=== PATIENT | male | born 1960 | race Caucasian/White ===

== ENCOUNTER 2017-03-01 06:40 | Inpatient (IN) | payer OTHER ==
[~2017-03-01] VITALS: Ht 189.9 cm; Wt 94.5 kg
[~2017-03-01 06:40] MED LIST: AMBI5TAB PO; HYDR1SOL6 PO; IBUP-232 PO; VOLT1GEL16 TOPICAL
[2017-03-01] MEDS ORDERED: HYDR-3288 PO (07:05)
[2017-03-01] MEDS ORDERED: ENOX40P SQ (07:05)
[2017-03-01] MEDS ORDERED: ASPI81CH6 CHEW (07:06)
[2017-03-01] MEDS ORDERED: SODIUM CHLORID 0.9% 500 ML IV PRN (07:15)
[2017-03-01] MEDS ORDERED: diphenhydrAMINE HCL 50 MG/ML VIAL IV PUSH PRN (07:15)
[2017-03-01] MEDS ORDERED: ZOLPIDEM TARTRATE 5 MG TAB PO PRN (07:15)
[2017-03-01] MEDS ORDERED: CHLORHEXIDINE GLUCONATE 2 % 1 PACK (2 CLOTHS) TOPICAL PRN (07:15)
[2017-03-01] MEDS ORDERED: CHLORHEXIDINE GLUCONATE 4% SOLN 120 ML BTL TOPICAL SCH (07:15)
[2017-03-01] MEDS ORDERED: ACETAMINOPHEN/HYDROcodone 325 MG/7.5 MG TAB PO PRN (07:15)
[2017-03-01] MEDS ORDERED: ONDANSETRON HCL 4 MG/2 ML VIAL IVP PRN (07:15)
[2017-03-01] MEDS ORDERED: MORPHINE SULFATE 4 MG/ML INJ IV PUSH PRN (07:15)
[2017-03-01] MEDS ORDERED: SODIUM CHLORIDE 0.9% FLUSH 5 ML FLUSH IVF PRN (07:15)
[2017-03-01] MEDS ORDERED: POVIDONE IODINE 7.5% SCRUB 118 ML BOTTLE TOPICAL SCH (07:15)
[2017-03-01] MEDS ORDERED: METOPROLOL TARTRATE 25 MG TAB PO PRN (07:15)
[2017-03-01] MEDS ORDERED: LACTATED RINGER'S 1000 ML IV PRN (07:15)
[2017-03-01] MEDS ORDERED: POVIDONE IODINE 5% (ANTISEPSIS KIT) 4 APPLICATIONS EACH NARE PRN (07:15)
[2017-03-01] MEDS ORDERED: BISACODYL 10 MG SUPP RECTAL PRN (07:15)
[2017-03-01] MEDS: DEXAMETHASONE SOD PHOS 20 MG/5 ML VIAL IV SCH (07:26)
[2017-03-01] MEDS ORDERED: GENTAMICIN SULFATE 80 MG/2 ML VIAL ONE (08:57)
[2017-03-01] MEDS ORDERED: ROPIVACAINE PERI-ARTICULAR INJECTION. P-ARTICULR SCH ×5 (10:00)
[2017-03-01] MEDS ORDERED: SODIUM CHLORIDE 0.9% IV SCH (10:00)
[2017-03-01] MEDS ORDERED: TRANEXAMIC PERI-ARTICULAR 3,000 MG/NS 100 ML P-ARTICULR SCH ×2 (10:00)
[2017-03-01] MEDS ORDERED: TRANEXAMIC ACID IV SCH (10:00)
[2017-03-01] MEDS ORDERED: METOCLOPRAMIDE HCL 10 MG/2 ML VIAL ONE (10:01)
[2017-03-01] MEDS ORDERED: ACETAMINOPHEN 1000 MG/100 ML 100 ML IV ONE (10:01)
[2017-03-01] MEDS: VANCOMYCIN 1000 MG/NS 250 ML (for <70 kg) IV SCH ×4 (10:21→10:28)
[2017-03-01] MEDS: ceFAZolin 2 GM PREMIX 50 ML IV SCH ×2 (10:21→10:28)
[2017-03-01] MEDS ORDERED: NEOSTIGMINE 3 MG/3 ML SYR IV ONE (12:00)
[2017-03-01] MEDS ORDERED: MIDAZOLAM HCL 2 MG/2 ML VIAL IV ONE (12:00)
[2017-03-01] MEDS ORDERED: LACTATED RINGER'S 1000 ML INJ 1,000 ML IV ONE (12:00)
[2017-03-01] MEDS ORDERED: GLYCOPYRROLATE 1 MG/5 ML SYRINGE IV PUSH ONE (12:00)
[2017-03-01] MEDS ORDERED: ROCURONIUM INJ 50 MG/5 ML SYRINGE IV PUSH ONE (12:00)
[2017-03-01] MEDS ORDERED: PROPOFOL 200 MG/20 ML AMP IV ONE (12:00)
[2017-03-01] MEDS ORDERED: ONDANSETRON HCL 4 MG/2 ML VIAL IV PUSH ONE (12:00)
[2017-03-01] MEDS ORDERED: LIDOCAINE HCL 1% PF 5 ML AMPULE OTHER ONE (12:00)
[2017-03-01] MEDS ORDERED: *MEPERIDINE 25 MG INJ VIAL PERIprocedural Use ONLY ONE (12:57)
[2017-03-01] MEDS ORDERED: Post-op Orders (for Pharmacy) MISC XX ONE (13:00)
[2017-03-01] MEDS ORDERED: *morphine SULFATE 8 MG/ML PERIprocedure ONLY ONE ×3 (13:11→13:51)
[2017-03-01] MEDS: SODIUM CHLOR 0.9% 1000 ML INJ 1,000 ML IV SCH ×3 (13:13→23:11)
--- NOTE | 2017-03-01 13:15 | MP ---
cc: MANAN WELCH DATE OF SURGERY: 03/01/2017 PREOPERATIVE DIAGNOSIS Left knee osteoarthritis. POSTOPERATIVE DIAGNOSIS Left knee osteoarthritis. PROCEDURE Left total knee arthroplasty with removal of deep hardware. SURGEON Dr. Manan Welch. EDUCATION AND DEVELOPMENT MANAGER Manan Fournier PA-C. ANESTHESIA General with an adductor canal femoral nerve block. ESTIMATED BLOOD LOSS 400 cc. TOURNIQUET TIME 44 minutes at 250 mmHg. COMPLICATIONS None. IMPLANTS USED DePuy Attune, size 9 posterior stabilized femoral component, size 9 rotating platform tibia baseplate, size 5 mm tibial insert, size 38 patella. JUSTIFICATION The patient is a 56-year-old male with a history of severe osteoarthritis involving the left knee. He had prior conservative treatment as well as prior opening with medial proximal tibial osteotomy. He has had severe progression of symptoms and failure of extensive conservative treatment to include medication therapy, injections, ambulatory assisted aids, home exercise program and activity modification. The patient is not overweight. X-rays of the patient's left knee revealed severe end-stage osteoarthritis with joint space narrowing, subchondral sclerosis, subchondral cysts, osteophyte formation and associated deformity. The patient was counseled as to the risks, benefits and alternatives to a total knee arthroplasty. The risks were discussed which include but are not limited to anesthesia, bleeding, infection, damage to nerves and blood vessels, pain, stiffness, failure of components, fracture, blood clot, pulmonary embolism and even . The patient's pain was severe. He favored the benefits over the risks. He did wish to proceed with surgery. PROCEDURE IN DETAIL A written consent was obtained. The patient was identified by name, taken to the operating room and placed supine on the operating table. An adductor canal femoral nerve block was performed followed by administration of general anesthesia. The patient was administered two grams of IV Ancef and one gram of IV vancomycin. A well-padded tourniquet was placed on the left thigh. The left lower extremity was prepped and draped using isopropyl alcohol, Hibiclens solution and ChloraPrep solution. After a timeout was performed an Esmarch bandage was used to exsanguinate the left lower extremity and tourniquet inflated to 250 mmHg. A longitudinal incision was made over the anterior aspect of the left knee. Dissection was carried down medially over the tibia to allow exposure of the tibial osteotomy hardware. A screwdriver was used to remove the four screws as well as the distal plate. At this point a medial parapatellar arthrotomy was performed. The patella was everted. A patella resection guide was used to resect 9 mm of patella. A size 38 mm guide was placed, three drill holes were placed, and a 38 mm trial fit well. Attention was turned to the femur where an intramedullary guide bernard was placed. A distal femoral guide was set to remove 10 mm of distal femur, 5 degrees off the anatomic valgus axis alignment. An oscillating saw was used to perform the distal femoral cut. Attention was turned to the tibia where an extramedullary tibial guide was set to resect 5 mm off the lowest portion of the medial tibial plateau. A tibia guide was pinned in place and a tibia cut was performed. A 5 mm spacer block showed full extension. Attention was turned back to the femur where AP sizing block measured a size 9. An anterior reference 3-degree external rotation guide was used to pin a size [address] Anterior, posterior and chamfer cuts were performed. A size 9 PCL box guide was pinned in place and the PCL was box cut with an oscillating saw. The medial and lateral meniscus remnants were removed as well as bone and soft tissue debris from the posterior portion of the knee. A size 9 tibia baseplate was pinned in place and the tibia was drilled and punched. The trial components were evaluated and final components cemented in place. With the current components the leg could achieve full extension to 0 degrees and flexion to 140. No evidence of tibial lift-off. Varus-valgus balance appeared appropriate and symmetric and the patella was noted to track centrally. With the tourniquet deflated the Bovie cautery was used for hemostasis. The surgical wound was thoroughly irrigated with sterile saline pulse lavage antibiotic-impregnated solution. The arthrotomy incision was closed with #1 Vicryl suture, the subcutaneous layer with 2-0 Vicryl suture. The skin incision was closed with Dermabond. Sterile dressing was applied. The patient tolerated the procedure well with no intraoperative complications noted. Manan Fournier, physician special ed assistant certified, was present during the entire procedure to include patient positioning and the procedure itself. The medical necessity of the physician special ed assistant was indicated in this case due to the complexity of the procedure. He assisted with manipulation of the leg and also retraction of muscle, tendon, bone and neurovascular structures. He assisted with preparation of bone and implantation of the prosthetic replacement. MD ROBERT Argueta/MIKE /12:28 PM /12:53 PM
[2017-03-01] MEDS ORDERED: DO NOT ADM ANY ANTICOAGULANT DRUGS PRN (13:45)
[2017-03-01] MEDS ORDERED: *HYDROmorphone PF 1 MG VIAL PERIprocedural Use ONLY ONE ×2 (13:59→14:10)
--- NOTE | 2017-03-01 14:02 | PD.CONS ---
HPI Service [facility] Hospitalists Consult Requested By Dr. Rodriguez Reason for Consult Medical management Primary Care Physician Walter Damon MD (Paul) Diagnoses: (1) Primary localized osteoarthrosis, lower leg History of Present Illness Written by Breanne Loredo, acting as scribe for Dr. Medellin on 03/01/17 at 13: 50. Mr. Ludwig is a 56-year-old male patient with a known medical history of severe osteoarthritis of the left knee who underwent a left total knee arthroplasty with removal of deep hardware by Dr. Rodriguez today. Hospitalist team has been consulted for medical management. At the time of assessment patient was examined postoperatively, awake and alert. Denies any other significant medical history. Does state he has underwent multiple conservative therapies including medication therapy, injection therapy, home PT and activity modification without any relief of his pain symptoms related to his osteoarthritis. Has been following with Dr. Rodriguez in the outpatient setting and has now elected to undergo today's surgery. Patient denies any recent fever, chills, cough, shortness of breath, abdominal pain, n/v/d or dysuria. Denies taking any medications. Review of Systems Constitutional: DENIES: Fever, Chills Eyes: DENIES: Blurred vision Respiratory: DENIES: Cough, Shortness of breath Cardiovascular: DENIES: Palpitations Gastrointestinal: DENIES: Abdominal pain, Black stools, Constipation, Diarrhea , Nausea, Vomiting Genitourinary: DENIES: Dysuria Musculoskeletal: COMPLAINS OF: Joint pain (left knee) Except as stated in HPI: all other systems reviewed are Neg Past Family Social History Allergies: Coded Allergies: No Known Allergies (Unverified , 02/26/17) Past Medical History Osteoarthritis Past Surgical History Right knee surgery x 6 Left knee surgery x 2 Cervical fusion x 2 Umbilical hernia repair Bowel obstruction surgery Reported Medications Reported Meds & Active Scripts Active Aspirin Low Dose (Aspirin) 81 Mg Chew 81 Mg CHEW BID 30 Days Lovenox Inj (Enoxaparin Sodium) 40 Mg/0.4 Ml Syr 40 Mg SQ DAILY Phoenix (Hydrocodone-Acetaminophen) 7.5-325 mg Tab 1-2 Tab PO Q6H PRN Reported Voltaren (Diclofenac Sodium) 1 % Gel..gram. 1 Applic TOPICAL DAILY Ambien (Zolpidem Tartrate) 5 Mg Tab 5 Mg PO HS PRN Hydrocodon-Acetamin 7.5-325/15 (Hydrocodone/Acetaminophen) 7.5 Mg-325 Mg/15 Ml ( 15 Ml) Solution 5 Caplet PO 3XWEEK Ibuprofen 600 Mg Tab 600 Mg PO TID Active Ordered Medications Current Medications Medications (Trade) Dose Ordered Sig/Ruy Route Start Time Stop Time Status Last Admin Sodium Chloride 1,000 ml @ 100 mls/hr Q10H IV 03/01/17 07:03 03/01/17 13:13 (NS Flush) 2 ml UNSCH PRN IVF 03/01/17 07:15 (NS Flush) 2 ml BID IVF 03/01/17 09:00 Cefazolin Sodium 1000 mg/Sodium Chloride 100 ml @ 200 mls/hr Q6H IV 03/01/17 17:00 03/02/17 05:29 (Lovenox Inj) 40 mg Q24H SQ 03/01/17 07:15 03/10/17 07:16 UNV (Morphine Inj) 3 mg Q3H PRN IV PUSH 03/01/17 07:15 (Phoenix 7.5-325 Mg) 1 tab Q4H PRN PO 03/01/17 07:15 (Phoenix 7.5-325 Mg) 2 tab Q4H PRN PO 03/01/17 07:15 (Theragran M Tab) 1 tab BID PO 03/02/17 21:00 05/01/17 20:59 (Zofran Inj) 4 mg Q6H PRN IVP 03/01/17 07:15 (Colace) 100 mg BID PO 03/02/17 21:00 (Ambien) 5 mg HS PRN PO 03/01/17 07:15 (Dulcolax Supp) 10 mg DAILY PRN RECTAL 03/01/17 07:15 (Benadryl Inj) 25 mg Q6H PRN IV PUSH 03/01/17 07:15 (Betadine 7.5% Scrub) 1 applic ONCE TOPICAL 03/01/17 07:15 03/04/17 07:14 (Hibiclens 4% Top Soln) 1 applic ONCE TOPICAL 03/01/17 07:15 03/04/17 07:14 Cefazolin Sodium/ Dextrose 50 ml @ 100 mls/hr LAST PUTTER AWAY IV 03/01/17 07:15 03/04/17 07:14 03/01/17 10:21 Vancomycin HCl 1000 mg/Sodium Chloride 250 ml @ 250 mls/hr LAST PUTTER AWAY IV 03/01/17 07:15 03/04/17 07:14 03/01/17 10:21 Tranexamic Acid 1419 mg/Sodium Chloride 114.19 ml @ 200 mls/ hr ONCE IV 03/01/17 10:00 03/01/17 16:00 03/01/17 10:35 Ropivacaine 24.63 ml/Ketorolac Tromethamine 30 mg/Epinephrine HCl 0.5 mg/ Clonidine 80 mcg/ Sodium Chloride 100 ml @ 200 mls/hr ONCE P-ARTICULR 03/01/17 10:00 03/01/17 16:00 03/01/17 11:09 Tranexamic Acid 3000 mg/Sodium Chloride 130 ml @ 260 mls/hr ONCE P-ARTICULR 03/01/17 10:00 03/01/17 16:00 03/01/17 11:09 (Decadron Inj) 10 mg LAST PUTTER AWAY IV 03/01/17 07:15 03/01/17 23:59 03/01/17 07:26 Lactated Ringer's 1,000 ml @ 30 mls/hr Q24H PRN IV 03/01/17 07:15 03/04/17 07:14 03/01/17 07:20 Sodium Chloride 500 ml @ 30 mls/hr [id number] PRN IV 03/01/17 07:15 03/04/17 07:14 (Lopressor) 25 mg LAST PUTTER AWAY PRN PO 03/01/17 07:15 03/04/17 07:14 (Betadine 5% Antisepsis Kit) 1 applic LAST PUTTER AWAY PRN EACH NARE 03/01/17 07:15 03/04/17 07:14 03/01/17 07:20 (Chlorhexidine 2% Cloth) 3 pack LAST PUTTER AWAY PRN TOPICAL 03/01/17 07:15 03/04/17 07:14 03/01/17 06:30 Miscellaneous Information ALL NURSING DEPARTME... UNSCH PRN .XX 03/01/17 13:45 03/02/17 13:44 Family History Father has a history of prostate cancer and dyslipidemia. Mother is . Social History Denies any current tobacco use. Admits to a social alcoholic drink 3-4 x per week. Denies any illicit drug use. Physical Exam Vital Signs Vital Signs Date Time Temp Pulse Resp B/P (MAP) Pulse Ox O2 Delivery O2 Flow Rate FiO2 03/01/17 13:30 84 15 127/72 (90) 99 Nasal Cannula 2 03/01/17 13:15 87 18 133/73 (93) 100 Nasal Cannula 2 03/01/17 13:00 97 15 153/91 (111) 98 Nasal Cannula 2 03/01/17 12:49 97.6 118 16 136/84 (101) 98 Nasal Cannula 2 03/01/17 07:17 97.6 65 16 142/83 (102) 98 Physical Exam GENERAL: This is a well-nourished, well-developed male patient, ashley in bed in no apparent distress. SKIN: No rashes, ecchymoses or lesions. Warm and dry. Left lower extremity dressing intact, clean and dry. HEENT: Atraumatic. Normocephalic. Pupils equal round and reactive. Extraocular motions intact. No scleral icterus. No injection or drainage. Nose without bleeding. Airway patent. NECK: Trachea midline. No JVD or lymphadenopathy. Supple, nontender, no meningeal signs. CARDIOVASCULAR: Regular rate and rhythm without murmurs, gallops, or rubs. RESPIRATORY: Clear to auscultation. Breath sounds equal bilaterally. No wheezes , rales, or rhonchi. GASTROINTESTINAL: Abdomen soft, non-tender, nondistended. No guarding. MUSCULOSKELETAL: Extremities without clubbing, cyanosis, or edema. No joint tenderness, effusion, or edema noted. NEUROLOGICAL: Awake and alert. Cranial nerves II through XII intact. Motor and sensory grossly within normal limits. Five out of 5 muscle strength in all muscle groups. Normal speech. Assessment and Plan Assessment and Plan Mr. Ludwig is a 56-year-old male patient with a known medical history of severe osteoarthritis of the left knee who underwent a left total knee arthroplasty with removal of deep hardware by Dr. Rodriguez today. Hospitalist team has been consulted for medical management. Left knee osteoarthritis: Status post left total knee arthroplasty with removal of deep hardware by Dr. Rodriguez, POD 0. - Control pain, Morphine IV available PRN per pain scale. Phoenix PO available PRN per pain scale. - Monitor for nausea, Zofran available PRN. - Monitor for constipation, Colace 100 mg PO BID scheduled. - Dressing changes per ortho recommendations - Ensure hydration, NS @ 100 ml/hr. Encourage PO intake. - PT/OT evaluation and treat appreciated. - Monitor H&H in am. Stable at this time. Monitor for any bleeding. - Monitor for fever, currently afebrile. - Encouraged use of IS. DVT prophylaxis: SCDs/Lovenox. Thank you for this consult, will follow with you. Discussed Condition With This note was transcribed by scribe [Breanne Loredo]. I, Dr. Regan Medellin personally performed the history, physical exam, and medical decision making; and confirmed the accuracy of the information in the transcribed note. Authenticated by Dr. Regan Medellin on 03/01/17 at 16:01. Breanne Loredo Mar 01, 2017 14:02 Regan Medellin MD Mar 01, 2017 16:01
--- NOTE | 2017-03-01 14:02 | RADRPT ---
EXAM DATE/TIME: 03/01/2017 13:31 [place] COMPARISON: No previous studies available for comparison. INDICATIONS : Post op total left knee. MEDICAL HISTORY : None. SURGICAL HISTORY : None. ENCOUNTER: Initial ACUITY: 1 day PAIN SCORE: 8/10 LOCATION: Left Knee FINDINGS: AP and lateral views of the knee following arthroplasty reveals a prosthesis in anatomic alignment. F racture is not appreciated. CONCLUSION: Status post total knee arthroplasty. Al Garcia MD FACR Al Garcia MD FACR on March 01, 2017 at 14:01 Board Certified Radiologist. This report was verified electronically.
[2017-03-01 16:00] VITALS: BP 127/88; PULSE 101; RESP 18; TEMP 96.8; O2SAT 95
[2017-03-01] MEDS ORDERED: HYDROmorphone HCL PF 1 MG/ML VIAL IV PUSH PRN (16:00)
[2017-03-01] MEDS ORDERED: NALOXONE HCL 0.4 MG/ML AMP IV PUSH PRN (16:00)
[2017-03-01 17:09] VITALS: O2SAT 94
[2017-03-01 20:00] VITALS: BP 117/71; PULSE 84; RESP 18; TEMP 98; O2SAT 97
[2017-03-01] MEDS: ACETAMINOPHEN/HYDROcodone 325 MG/7.5 MG TAB PO PRN (21:12)
[2017-03-01] MEDS: SODIUM CHLORIDE 0.9% FLUSH 5 ML FLUSH IVF SCH (23:09)
[2017-03-02] VITALS: BP 133/72; PULSE 87; RESP 18; TEMP 96.9; O2SAT 100
[2017-03-02 04:00] VITALS: BP 108/65; PULSE 93; RESP 18; TEMP 96.6; O2SAT 99
[2017-03-02] MEDS: ACETAMINOPHEN/HYDROcodone 325 MG/7.5 MG TAB PO PRN ×5 (04:33→22:49)
[2017-03-02 08:00] VITALS: BP_SYST 106; BP_SYST 148; BP_DIAS 60; BP_DIAS 69; PULSE 59; PULSE 76; RESP 16; TEMP 96.3; TEMP 96.6; O2SAT 97; O2SAT 99
--- NOTE | 2017-03-02 08:10 | PD.ORT.PN ---
Subjective Post Op Day #: 1 Subjective Remarks pain tolerable. Objective Vitals Vital Signs Date Time Temp Pulse Resp B/P (MAP) Pulse Ox O2 Delivery O2 Flow Rate FiO2 03/02/17 07:38 Room Air 03/02/17 04:00 96.6 93 18 108/65 (79) 99 03/02/17 00:00 96.9 87 18 133/72 (92) 100 03/01/17 20:00 98.0 84 18 117/71 (86) 97 03/01/17 17:09 94 Nasal Cannula 2.00 03/01/17 16:00 96.8 101 18 127/88 (101) 95 03/01/17 14:30 92 15 129/63 (85) 98 Nasal Cannula 2 03/01/17 14:15 87 15 110/70 (83) 93 Nasal Cannula 2 03/01/17 14:00 79 15 129/66 (87) 95 Nasal Cannula 2 03/01/17 13:45 95 15 132/76 (94) 98 Nasal Cannula 2 03/01/17 13:30 84 15 127/72 (90) 99 Nasal Cannula 2 03/01/17 13:15 87 18 133/73 (93) 100 Nasal Cannula 2 03/01/17 13:00 97 15 153/91 (111) 98 Nasal Cannula 2 03/01/17 12:49 97.6 118 16 136/84 (101) 98 Nasal Cannula 2 I/O 03/01/17 03/01/17 03/01/17 03/02/17 03/02/17 03/02/17 07:00 15:00 23:00 07:00 15:00 23:00 Intake Total 1550 ml 1255 ml 1310 ml Output Total 600 ml 450 ml 1000 ml Balance 950 ml 805 ml 310 ml Intake Oral 50 ml 240 ml 480 ml IV Total 1500 ml 1015 ml 830 ml Output Urine Total 400 ml 450 ml 1000 ml Estimated Blood Loss 200 ml # Bowel Movements 0 0 Objective Remarks in bed, nad incision no erythema, no drainage neg homans nvi Assessment & Plan Ortho Post Op Day #: 1 Problem List: Assessment and Plan s/p removal of hardware L knee, L TKA wbat daily dressing changes lovenox d/c planning home with hhc and pt - likely Wednesday rx in chart f/up dr. garcia 2 weeks Darnell Fournier PA Mar 02, 2017 08:10
--- NOTE | 2017-03-02 08:11 | HHI.DCPOC ---
Discharge Care Plan Diagnosis: (1) Primary localized osteoarthrosis, lower leg Your Health Problems Are: Difficulty with ADL Goals to Promote Your Health * To prevent worsening of your condition and complications * To maintain your health at the optimal level Directions to Meet Your Goals Take your medications as prescribed Follow your dietary instruction Follow activity as directed Keep your appointments as scheduled Take your immunizations and boosters as scheduled If your symptoms worsen call your PCP, if no PCP go to Urgent Care Center or Emergency Room Smoking is Dangerous to Your Health. Avoid second hand smoke Call the 24-hour hour crisis hotline for domestic abuse at Darnell Fournier Mar 02, 2017 08:11
--- NOTE | 2017-03-02 08:12 | HHI.FF ---
Face to Face Verification Diagnosis: (1) Primary localized osteoarthrosis, lower leg Physical Therapy Gait training, Safety evaluation, Transfer training, bed to chair Knee: Total knee, Protocol: Left, Full weight bearing Left LE Weight Bearing: WB as tolerated Nursing RN: 3 days/week x 2 weeks Nursing: Chaparrita teaching, Dressing changes Dressing Changes: Daily dressing change I have seen patient Stanley Ludwig on 03/02/17. My clinical findings support the need for the requested home health care services because: Limited ability to care for self High risk of falls I certify that my clinical findings support that this patient is homebound because: Post-op weakness Unsteady gait/balance Darnell Fournier Mar 02, 2017 08:12
[2017-03-02] MEDS ORDERED: CPMMACHINE (08:13)
[2017-03-02 08:25] LABS: MEAN CELL VOLUME 88.9 FL (80.0-100.0); MEAN CORPUSCULAR HEMOGLOBIN 29.8 PG (27.0-34.0); MEAN CORPUSCULAR HGB CONC 33.5 % (32.0-36.0); PLATELET COUNT 206 TH/MM3 (150-450); RED BLOOD COUNT 4.05 MIL/MM3 (4.50-5.90); RED CELL DISTRIBUTION WIDTH 12.9 % (11.6-17.2); REVIEW FLAG FINAL; WHITE BLOOD COUNT 11.8 TH/MM3 (4.0-11.0)
[2017-03-02 08:58] LABS: BICARBONATE 27.8 MEQ/L (21.0-32.0); POTASSIUM 3.6 MEQ/L (3.5-5.1)
[2017-03-02] MEDS: SODIUM CHLORIDE 0.9% FLUSH 5 ML FLUSH IVF SCH ×2 (09:00→20:50)
--- NOTE | 2017-03-02 10:29 | HHI.PR ---
Subjective Remarks patient seen in followup for post op constipation. Spouse reports use of Smooth Move tea helpful. No abd pain, no flatus yet otherwise no new complaints Objective Vitals Vital Signs Date Time Temp Pulse Resp B/P (MAP) Pulse Ox O2 Delivery O2 Flow Rate FiO2 03/02/17 08:00 96.3 59 16 106/60 (75) 99 03/02/17 07:38 Room Air 03/02/17 04:00 96.6 93 18 108/65 (79) 99 03/02/17 00:00 96.9 87 18 133/72 (92) 100 03/01/17 20:00 98.0 84 18 117/71 (86) 97 03/01/17 17:09 94 Nasal Cannula 2.00 03/01/17 16:00 96.8 101 18 127/88 (101) 95 03/01/17 14:30 92 15 129/63 (85) 98 Nasal Cannula 2 03/01/17 14:15 87 15 110/70 (83) 93 Nasal Cannula 2 03/01/17 14:00 79 15 129/66 (87) 95 Nasal Cannula 2 03/01/17 13:45 95 15 132/76 (94) 98 Nasal Cannula 2 03/01/17 13:30 84 15 127/72 (90) 99 Nasal Cannula 2 03/01/17 13:15 87 18 133/73 (93) 100 Nasal Cannula 2 03/01/17 13:00 97 15 153/91 (111) 98 Nasal Cannula 2 03/01/17 12:49 97.6 118 16 136/84 (101) 98 Nasal Cannula 2 I/O 03/01/17 03/01/17 03/01/17 03/02/17 03/02/17 03/02/17 07:00 15:00 23:00 07:00 15:00 23:00 Intake Total 1550 ml 1255 ml 1310 ml Output Total 600 ml 450 ml 1000 ml Balance 950 ml 805 ml 310 ml Intake Oral 50 ml 240 ml 480 ml IV Total 1500 ml 1015 ml 830 ml Output Urine Total 400 ml 450 ml 1000 ml Estimated Blood Loss 200 ml # Bowel Movements 0 0 Result Diagram: 03/02/1772903/02/17729 Imaging Last Impressions Knee X-Ray 03/01/17702 Signed Impressions: Service Date/Time: Wednesday, March 01, 2017 13:31 - CONCLUSION: Status post total knee arthroplasty. Al Garcia MD Objective Remarks GENERAL: This is a well-nourished, well-developed patient, in no apparent distress. CARDIOVASCULAR: Regular rate and rhythm without murmurs, gallops, or rubs. RESPIRATORY: Clear to auscultation. Breath sounds equal bilaterally. No wheezes , rales, or rhonchi. GASTROINTESTINAL: Abdomen soft, non-tender, nondistended. Normal active bowel sounds MUSCULOSKELETAL:left knee post op, other 3 Extremities without clubbing, cyanosis, or edema. NEURO: Alert & Oriented x4 to person, place, time, situation. Moves all ext x4 A/P Problem List: (1) Primary localized osteoarthrosis, lower leg ICD Code: M17.10 - Unilateral primary osteoarthritis, unspecified knee Plan: POD #2 Aspirin/lmwh, norco per ortho PT efforts home when stable (2) Constipation ICD Code: K59.00 - Constipation, unspecified Plan: current per patient after surgery and related to Opioids for pain continue bowel regimen Smooth move tea per spouse dc urinary catheter today Discharge Planning likely home in am per Ortho Problem Qualifiers (1) Primary localized osteoarthrosis, lower leg: Qualified Codes: M17.12 - Unilateral primary osteoarthritis, left knee Debora Maciel MD Mar 02, 2017 10:29
[2017-03-02] MEDS: ENOXAPARIN SODIUM 40 MG/0.4 ML SYRINGE SQ SCH (12:50)
[2017-03-02] MEDS: SODIUM CHLOR 0.9% 1000 ML INJ 1,000 ML IV SCH ×2 (13:03→20:50)
[2017-03-02 16:00] VITALS: BP 110/57; PULSE 73; RESP 16; TEMP 96.6; O2SAT 98
[2017-03-02 18:10] VITALS: O2SAT 99
[2017-03-02 20:00] VITALS: BP 121/59; PULSE 75; RESP 18; TEMP 98; O2SAT 97
[2017-03-02] MEDS: MULTIVITAMINS/MINERALS THERAPEUTIC TAB PO SCH (20:47)
[2017-03-02] MEDS: DOCUSATE SODIUM 100 MG CAP PO SCH (20:48)
[2017-03-03] VITALS: BP 108/56; PULSE 87; RESP 18; TEMP 97.2; O2SAT 97
[2017-03-03] MEDS: ACETAMINOPHEN/HYDROcodone 325 MG/7.5 MG TAB PO PRN ×3 (04:44→11:24)
[2017-03-03 07:28] LABS: HEMATOCRIT 31.8 % (39.0-51.0); MEAN CELL VOLUME 88.9 FL (80.0-100.0); MEAN CORPUSCULAR HEMOGLOBIN 30.9 PG (27.0-34.0); MEAN CORPUSCULAR HGB CONC 34.8 % (32.0-36.0); PLATELET COUNT 147 TH/MM3 (150-450); RED BLOOD COUNT 3.58 MIL/MM3 (4.50-5.90); REVIEW FLAG FINAL; WHITE BLOOD COUNT 6.9 TH/MM3 (4.0-11.0)
[2017-03-03 07:38] LABS: BICARBONATE 28.8 MEQ/L (21.0-32.0); POTASSIUM 3.9 MEQ/L (3.5-5.1)
--- NOTE | 2017-03-03 07:57 | PD.ORT.PN ---
Subjective Post Op Day #: 2 Subjective Remarks pain tolerable. Objective Vitals Vital Signs Date Time Temp Pulse Resp B/P (MAP) Pulse Ox O2 Delivery O2 Flow Rate FiO2 03/03/17 00:00 97.2 87 18 108/56 (73) 97 03/02/17 20:00 98.0 75 18 121/59 (79) 97 03/02/17 18:10 99 21 03/02/17 16:00 96.6 73 16 110/57 (74) 98 03/02/17 08:00 96.3 59 16 106/60 (75) 99 03/02/17 08:00 96.6 76 16 148/69 (95) 97 I/O 03/02/17 03/02/17 03/02/17 03/03/17 03/03/17 03/03/17 07:00 15:00 23:00 07:00 15:00 23:00 Intake Total 2510 ml 600 ml 360 ml 240 ml Output Total 1000 ml Balance 1510 ml 600 ml 360 ml 240 ml Intake Oral 480 ml 600 ml 360 ml 240 ml IV Total 2030 ml Output Urine Total 1000 ml # Voids 1 2 3 # Bowel Movements 0 0 0 Result Diagram: 03/03/17 0659 03/03/17 0659 Objective Remarks in chair, nad incision no erythema, no drainage swelling of knee neg homans nvi Assessment & Plan Ortho Post Op Day #: 2 Problem List: Assessment and Plan s/p removal of hardware L knee, L TKA wbat daily dressing changes lovenox d/c planning home with hhc and pt - cleared for today ice rx in chart f/up dr. garcia 2 weeks Darnell Fournier Mar 03, 2017 07:57
[2017-03-03 08:00] VITALS: BP 120/57; PULSE 86; RESP 18; TEMP 96.3; O2SAT 96
[2017-03-03] MEDS: DOCUSATE SODIUM 100 MG CAP PO SCH (08:53)
[2017-03-03] MEDS: MULTIVITAMINS/MINERALS THERAPEUTIC TAB PO SCH (08:53)
[2017-03-03] MEDS: SODIUM CHLORIDE 0.9% FLUSH 5 ML FLUSH IVF SCH (08:54)
[2017-03-03] MEDS: SODIUM CHLOR 0.9% 1000 ML INJ 1,000 ML IV SCH (08:55)
[2017-03-03] MEDS: ENOXAPARIN SODIUM 40 MG/0.4 ML SYRINGE SQ SCH (11:23)
--- NOTE | 2017-03-03 15:59 | MD ---
cc: MANAN WELCH ADMISSION DATE: 03/01/2017 DISCHARGE DATE: 03/03/2017 ADMISSION DIAGNOSIS Severe degenerative osteoarthritis, left knee. DISCHARGE DIAGNOSIS Severe degenerative osteoarthritis, left knee. HISTORY OF PRESENT ILLNESS Mr. Ludwig is a 56-year-old male who is a patient of Dr. Manan Welch at the [facility]. He is currently being treated for severe and progressive left knee pain. He has a long history regarding his left knee and has had prior treatment including surgical intervention, medications, assistive devices, physical therapy, multiple cortisone injections, home exercise program and activity modification without relief of symptoms. He does have x-ray evidence of severe degenerative osteoarthritis of the left knee. While in the office the patient was counseled on his diagnosis and treatment options. Risks, benefits, indications all were discussed. The patient did elect to proceed with surgical intervention to include a left total knee arthroplasty with removal of deep hardware. DATE OF SURGERY: 03/01/2017, left total knee arthroplasty with removal of deep hardware. POSTOP AFTER SURGERY The patient was admitted to [facility] where he received appropriate medical management, pain control, DVT prophylaxis as well as physical therapy. DISCHARGE Once being discharged from the hospital the patient is cleared to go home where he will receive home health care and home physical therapy. He is in stable condition. He may weight-bear as tolerated. The patient is to receive daily dressing changes and has been instructed on appropriate wound care management. He has been provided prescriptions for pain control as well as DVT prophylaxis medication. He has also been provided a follow-up appointment in approximately 2 weeks from his date of surgery. The patient has asked appropriate questions which have been answered. The patient is cleared for discharge. Dictated by: Manan Fournier PA-C MD ROBERT Argueta/JORJE /8:05 AM /4:01 PM
== END 2017-03-03 12:08 | disposition home health service (06) | DRG 470 ==
LOC: HSDI 06:40 → N06A 15:05
PROVIDERS: ADMIT Orthopaedic Surgery Sports Medicine; ATTEND Orthopaedic Surgery Sports Medicine
PROC: 0QPH04Z Removal of Internal Fixation Device from Left Tibia, Open Approach (ICD-10-PCS; 2017-03-01)
PROC: 3E0T3BZ Introduction of Anesthetic Agent into Peripheral Nerves and Plexi, Percutaneous Approach (ICD-10-PCS; 2017-03-01)
PROC: 0SRD0J9 Replacement of Left Knee Joint with Synthetic Substitute, Cemented, Open Approach (ICD-10-PCS; principal; 2017-03-01 10:24)
DX: M17.12 Unilateral primary osteoarthritis, left knee (principal); K59.00 Constipation, unspecified; M25.762 Osteophyte, left knee; Z79.01 Long term (current) use of anticoagulants; Z98.1 Arthrodesis status
CPT/HCPCS: 73560; 80048; 85027; 86850; 86900; 86901; 94150; C1776; J0131; J0690; J0735; J1100; J1170; J1580; J1650; J1885; J2175; J2250; J2270; J2405; J2710; J2765; J2795; J3010; J3370; J7030; J7050; J7120; L1830